=== PATIENT | male | born 1935 | race Caucasian/White ===

== ENCOUNTER 2018-05-18 19:05 | Inpatient (IN) ==
[2018-05-18 20:02] LABS: BILIRUBIN URINE NEGATIVE (NEGATIVE); BLOOD URINE 1+ (NEGATIVE); CLARITY CLEAR (CLEAR); COLOR YELLOW; KETONE URINE TRACE mg/dL (NEGATIVE); LEUKOCYTES URINE TRACE (NEGATIVE); NITRITE URINE NEGATIVE (NEGATIVE); PROTEIN URINE 1+(30 mg/dL) mg/dL (NEGATIVE); UROBILINOGEN URINE 4 mg/dL
[2018-05-18 20:03] LABS: URINE SOURCE CLEAN CATCH
[2018-05-18 20:05] LABS: URINE BACTERIA 2+ /HFP; URINE CAST NONE SEEN /LPF; URINE CRYSTAL NONE SEEN /HPF; URINE EPITHELIAL CELLS <10 /HPF (<10); URINE RBC <10 /HPF (<10); URINE WBC <10 /HPF (<10); URINE YEAST NONE SEEN /HPF
[2018-05-18 20:18] LABS: INFLUENZA A NEGATIVE (NEGATIVE); INFLUENZA B NEGATIVE (NEGATIVE)
[2018-05-18] MEDS ORDERED: NS 1,000 ML IV ONE (20:48)
[2018-05-18 21:23] LABS: BASO# 0.02 X1000 (0.0-0.2); BASO% 0.2 % (0.0-0.8); EOS% 0.8 % (0.0-10.0); HEMATOCRIT 40.7 % (42.0-52.0); HEMOGLOBIN 14.1 g/dL (14.0-18.0); IMM GRAN# 0.07 X1000 (0.0-0.04); IMM GRAN% 0.5 % (0.0-0.5); LYMPH# 1.18 X1000 (1.2-3.4); LYMPH% 9.1 % (20.5-51.1); MCHC 34.6 g/dL (33-37); MCV 98.1 FL (81-99); MONO% 10.8 % (1.7-9.3); MPV 10.8 FL (7.4-10.4); NEUT# 10.17 X1000 (1.4-6.5); NEUT% 78.6 % (42.2-75.2); PLT 229 X1000 (130-400); RBC 4.15 XMIL (4.7-6.1); WBC 12.94 X1000 (4.8-10.8)
[2018-05-18 21:48] LABS: ALBUMIN 3.6 g/dL (3.5-5.0); CALCIUM 8.6 mg/dL (8.8-10.2); CREATININE 1.2 mg/dL (0.7-1.2); POTASSIUM 3.8 mmol/L (3.5-5.1); TOTAL BILIRUBIN 1.1 mg/dL (0.20-1.00); TOTAL PROTEIN 6.6 g/dL (6.3-8.3)
--- NOTE | 2018-05-18 22:01 | Diag Imaging Result Doc PS360 ---
EXAM: CT HEAD/C-SPINE W/O CONTRAST 05/18/2018 HISTORY: MULTIPLE SYNCOPE TECHNIQUE: This exam was performed using automated exposure control, adjustment of mA or kV according to patient size, and/or use of iterative reconstruction technique. COMMENT: There is no evidence of mass effect, bleed, or abnormal extra-axial fluid collection. There are calcifications in the basal ganglia. There is opacification of the left maxillary sinus. This was not present at the time the previous study of 04/20/2017 however the appearance the brain has not changed significantly. There is also mucosal thickening in many of the ethmoid air cells. There is mucosal thickening in the right sphenoid sinus. Cervical spine: There is disc space narrowing and posterior osteophyte formation at C4-5, C5-C6, and C6-7. The facets appear to be well aligned. There is severe facet arthropathy present on the left at the C3-4 and to some extent at the C4-5 level. This was also present at the time the previous study of 04/20/2017. IMPRESSION: Sinusitis as described above. Otherwise no evidence of acute intracranial disease. Stable cervical spine. Electronically signed by Herbert Chirinos 05/18/2018 9:59 PM
--- NOTE | 2018-05-18 22:10 | Diag Imaging Result Doc PS360 ---
EXAM: CHEST-2 VIEWS 05/18/2018 HISTORY: WHEEZING ON EXAM TECHNIQUE: PA and lateral chest COMMENT: There is ill-defined opacity in the right base partially silhouetting the diaphragm. This is worse than on the previous study of 10/08/2017. There is COPD. IMPRESSION: COPD with right lower lobe pneumonia. Electronically signed by Herbert Chirinos 05/18/2018 10:08 PM
[2018-05-18 22:18] LABS: INFLUENZA A NEGATIVE (NEGATIVE); INFLUENZA B NEGATIVE (NEGATIVE)
[2018-05-18] MEDS ORDERED: NORCO-5 PO PRN (23:13)
[2018-05-18] MEDS ORDERED: TYLENOL PO PRN (23:19)
[2018-05-18] MEDS ORDERED: ZOFRAN IV PRN (23:19)
[2018-05-19] MEDS: NS 1,000 ML IV SCH ×3 (00:06→17:48)
[2018-05-19] MEDS: LEVAQUIN 750 MG/D5W 750 MG/150 ML IVPB IV SCH ×2 (00:06→22:40)
--- NOTE | 2018-05-19 04:20 | PROVIDER DOCUMENTATION ---
This chart was entered by Camila Leonard Scribe, acting as scribe for Clarice Ibanez MD. HPI-General Adult - General Chief Complaint: General Adult Stated Complaint: FLU SX Time Seen by Provider: 05/18/18 20:29 Source: patient Allergies/Adverse Reactions: Patient Allergies Allergy/AdvReac Type Severity Reaction Status Date / Time No Known Allergies Allergy Verified 05/18/18 20:01 Home Medications: Home Medication List Medication Instructions Recorded Confirmed Last Taken Type Aspirin 81 mg PO DAILY 10/04/15 05/18/18 05/17/18 22:00 History Clopidogrel Bisulfate [Plavix] 75 mg PO DAILY 10/04/15 05/18/18 05/17/18 22:00 History Hydrocodone/APAP 5 mg/325 mg 1 ea PO TID PRN #20 tab 10/15/17 05/18/18 05/17/18 22:00 Rx [[place]-5] Atorvastatin Calcium 20 mg PO HS 05/18/18 05/18/18 05/17/18 22:00 History - History of Present Illness -Gen Adult Nature of Presenting Problems: Pt is 83/m presenting to ED w/ c/o bodyaches, fever, sts that he passed out 3 times yesterday and had fallen off the toilet and at the table. Location of Pain/Injury: reports: generalized Pain Radiation: reports: no radiation Quality of Pain: reports: none Severity: reports: moderate Onset/Duration: reports: 4 days ago Timing: reports: still present Context/Activities at Onset: reports: none Modifying Factors: improves with: nothing Review of Systems - Adult - REVIEW OF SYSTEMS - ADULT Constitutional: reports: see HPI Eyes: reports: no symptoms reported Ears, Nose, Mouth & Throat: reports: no symptoms reported Cardiovascular: reports: no symptoms reported Respiratory: reports: cough Gastrointestinal: reports: see HPI Genitourinary: reports: no symptoms reported Integumentary: reports: no symptoms reported Neurological: reports: see HPI Allergic/Immunologic: reports: no symptoms reported Past History - Adult - PAST MEDICAL HISTORY-ADULT Review of Records: reports: Nursing Assessment Review, Medications Reviewed, Social history reviewed & non-contributory. Major Childhood Illnesses: reports: denies history Cardiovascular: reports: blood clots, PVD, other (bradycardia) Respiratory: reports: denies history Gastrointestinal: reports: GERD, ulcer Obstetrical/Gynecological: reports: denies history Genitourinary: reports: denies history Musculoskeletal: reports: arthritis Neurological: reports: CVA, other (brain bleed ) Endocrine/Immune: reports: denies history Other Conditions: reports: denies history - PRIOR SURGERIES/PROCEDURES Surgical/Procedure History: reports: hernia repair, orthopedic (extremity) (bilateral hand), other (stomach sx x6, facial sx, brain bleed 2011) - IMMUNIZATION STATUS Childhood Immunizations: See Nurse Assessment Flu Vaccine: See Nurse Assessment - FAMILY HISTORY Family History: reviewed, not pertinent Physical Exam-General - CONSTITUTIONAL General Appearance: alert, no apparent distress - EYES Eyes: PERRL/EOMI - HEAD, EARS, NOSE, MOUTH & THROAT HENMT: normocephalic/atraumatic, other (slightly dry mucous membrane) - NECK Neck: non-tender, full range of motion, supple - RESPIRATORY Respiratory: rhonchi (RL lung field), other (Good air entry B/L). negative: crackles - CARDIOVASCULAR Cardiovascular: regular rate, rhythm, no edema - GASTROINTESTINAL (ABDOMEN) Abdominal Exam: normal bowel sounds, non tender, soft - MUSCULOSKELETAL Back Exam: no CVA tenderness - NEUROLOGIC Neurologic: nanotechnician II-XII nml as tested, grossly normal, no motor/sensory deficits, negative romberg's sign - PSYCHIATRIC Psych/Mental Status: oriented x 3 Progress - PLAN OF CARE/RESULTS Progress/Plan/Lab Results: Vital Signs - 8 hr 05/18/18 19:34 Temperature 99 F Pulse Rate 67 Respiratory Rate 20 Blood Pressure 143/69 O2 Sat by Pulse Oximetry 93 L Laboratory Results - last 24 hr 05/18/18 05/18/18 19:44 19:54 Urine Source CLEAN CATCH Urine Color YELLOW Urine Clarity CLEAR Urine pH 5.0 Ur Specific [place] 1.020 Urine Protein 1+(30 mg/dL) A Urine Ketones TRACE Urine Blood 1+ A Urine Nitrite NEGATIVE Urine Bilirubin NEGATIVE Urine Urobilinogen 4 Urine Microscopic RBC <10 Urine WBC TRACE A Urine Microscopic WBC <10 Ur Epithelial Cells <10 Urine Crystals NONE SEEN Urine Bacteria 2+ Urine Casts NONE SEEN Urine Yeast NONE SEEN Urine Glucose TRACE(50 mg/dL) A Influenza A (Rapid) NEGATIVE Influenza B (Rapid) NEGATIVE Orders Category Date Time Status ED: Orthostatic Vital Signs (E DIRECTED Care 05/18/18 20:50 Active cxr [CHEST-2 VIEWS] [RAD] Stat Exams 05/18/18 20:49 Ordered CBC WITH ELECTRONIC DIFF [HEME] Stat Lab 05/18/18 20:50 Ordered CMP [COMPREHENSIVE METABOLIC PANEL] [CHEM] Stat Lab 05/18/18 20:50 Ordered Flu Swab [INFLUENZA SCREEN A/B] Stat Lab 05/18/18 21:06 Uncollected Flu [INFLUENZA SCREEN PL] Stat Lab 05/18/18 19:54 Completed TROPONIN T Stat Lab 05/18/18 20:[address] W/POSS RFLX CULT [URINALYSIS] Stat Lab 05/18/18 19:44 Completed URINE CULTURE [RM] Routine Lab 05/18/18 20:05 Ordered 0.9% Sodium Chloride Inj [Ns] 1,000 ml Med 05/18/18 20:48 Active IV 999 mls/hr EKG [EKG] Stat Ther 05/18/18 20:49 Ordered Result Diagrams: 05/18/18 21:08 05/18/18 21:08 - REASSESSMENT Reassessment #1 Status: unchanged (will admit to the hopital) - EKG 1 Time of EKG reading by physician:: 20:57 EKG Read and Signed by:: Clarice Ibanez EKG Interpretation (*Must complete 3 of following elements*): Abnormal (sinus rhythm with marked sinus arrhythmia with frequent premature ventricular complexes, nonspecific T wave abnormalities abormal ECG) Rate: 81 Rhythm: sinus [place]: normal QRS: normal - CONSULTS/PCP/HOSPITALIST Notification #1 *Consult/PCP/Hospitalist*: Dr. Carlos Barnes Time Discussed: 22:09 Consult Disposition: Admit (Hx , PE and patient care discussed. Accepted.) Departure - Departure Date of Disposition Decision: 05/18/18 Time of Disposition Decision: 22:08 DIAGNOSIS: PVCs (premature ventricular contractions) Syncope Qualifiers: Syncope type: unspecified Qualified Code(s): R55 - Syncope and collapse Pneumonia Qualifiers: Pneumonia type: due to unspecified organism Laterality: right Lung location: lower lobe of lung Qualified Code(s): J18.1 - Lobar pneumonia, unspecified organism Disposition: ADMITTED INPATIENT 09 Certified Medical Emergency: Emergent Condition: Stable - Critical Care Note This patient required my direct & personal management of CC.: No Attestation - Physician/ ALEXIS Attestation Patient care was provided by Advanced Practice Provider:: No The physician spent face to face time with patient:: Yes Advanced Practice Provider documentation review:: Supervising physician onsite and consulted in the evaluation and care of this patient. The physician did have a face to face encounter with the patient. This chart was documented by the indicated scribe, (Camila Leonard, Zo) and accurately reflects the services I performed and decisions made by me, Clarice Ibanez MD, as attested by the provider's signature.
[2018-05-19] MEDS: PROTONIX PO SCH (06:00)
[2018-05-19 06:12] LABS: BASO# 0.02 X1000 (0.0-0.2); BASO% 0.2 % (0.0-0.8); EOS# 0.13 X1000 (0.0-0.7); EOS% 1.2 % (0.0-10.0); HEMATOCRIT 38.1 % (42.0-52.0); IMM GRAN# 0.08 X1000 (0.0-0.04); IMM GRAN% 0.7 % (0.0-0.5); LYMPH# 1.25 X1000 (1.2-3.4); LYMPH% 11.7 % (20.5-51.1); MCH 33.3 PG (27-31); MCHC 34.1 g/dL (33-37); MCV 97.7 FL (81-99); MONO# 1.17 X1000 (0.11-0.59); MPV 10.6 FL (7.4-10.4); NEUT# 8.02 X1000 (1.4-6.5); NEUT% 75.2 % (42.2-75.2); PLT 220 X1000 (130-400); RDW 13.8 % (11.5-14.5); WBC 10.67 X1000 (4.8-10.8)
[2018-05-19 06:38] LABS: AGAP 12; ALBUMIN 2.9 g/dL (3.5-5.0); ALKALINE PHOSPHATASE 104 U/L (32-122); BUN 16 mg/dL (8-22); CALCIUM 7.9 mg/dL (8.8-10.2); CHLORIDE 102 mmol/L (98-107); COSMO 276; CREATININE 1.1 mg/dL (0.7-1.2); ESTIMATED GFR > 60; GLUCOSE 108 mg/dL (70-104); GOT 10 U/L (10-34); GPT 6 U/L (10-44); POTASSIUM 3.4 mmol/L (3.5-5.1); SODIUM 137 mmol/L (136-145); TCO2 24 mmol/L (25-35); TOTAL PROTEIN 5.9 g/dL (6.3-8.3)
--- NOTE | 2018-05-19 06:52 | EKG Report ---
Test Performed on : 05/18/2018 8:55:12 PM Test Reason : CP Blood Pressure : / mmHG Vent. Rate : 081 BPM Atrial Rate : 094 BPM P-R Int : 140 ms QRS Dur : 096 ms QT Int : 394 ms P-R-T Axes : 048 009 052 degrees QTc Int : 457 ms Sinus rhythm. with marked sinus arrhythmia. with frequent premature ventricular complexes. Nonspecific ST abnormality Abnormal ECG When compared with ECG of 09-OCT-2017 15:55, Sinus rhythm. has replaced Junctional rhythm. Vent. rate has increased BY 40 BPM Unconfirmed Result
[2018-05-19] MEDS: PLAVIX PO SCH (08:32)
[2018-05-19] MEDS: ASPIRIN PO SCH (08:32)
[2018-05-19] MEDS: DUONEB (A & A) INH SCH ×4 (11:20→22:50)
--- NOTE | 2018-05-19 12:08 | HISTORY AND PHYSICAL ---
PRIMARY CARE PHYSICIAN: Pascual Kurtz MD CHIEF COMPLAINT: Body aches, fever, chills, and had 3 syncopal episodes on . HISTORY OF PRESENTING ILLNESS: This is an 83-year-old male who presents to [facility] ER with complaints of a subjective fever, chills, and body aches. States that he passed out 3 separate times on . One time, he states he fell off the toilet. The second time, he fell forward out of a chair and the third time, he states he passed out and fell backwards out of the chair. His workup in the emergency room showed a white blood cell count of 12.94. His electrolytes were normal. TSH normal at 2.84. Urinalysis was negative except for 2+ bacteria. Influenza A and B were both negative. We did a chest x-ray that showed COPD with right lower lobe pneumonia. We did do a head and cervical spine CT that showed a sinusitis, but no other evidence of acute intracranial disease and a stable cervical spine. So, he was admitted for further evaluation and treatment. 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 PAST SURGICAL HISTORY: Bilateral hernia repair, bilateral hand trigger finger repair, six procedures done for his peptic ulcer disease, right facial reconstruction, right cataract surgery. FAMILY HISTORY: Reviewed and noncontributory. SOCIAL HISTORY: He currently lives with his . He was a former smoker but has quit for greater than 10 years. Denied any alcohol or illicit drug use. ALLERGIES: He has no known drug allergies. HOME MEDICATIONS: He takes aspirin 81 mg p.o. daily, atorvastatin 20 mg p.o. at bedtime, Plavix 75 mg p.o. daily and [place] 5 one p.o. t.i.d. p.r.n. pain. LABORATORY DATA: Showed a white blood cell count of 12.94, hemoglobin 14.1, hematocrit 40.7, platelets 229,000. Sodium 138, potassium 3.8, chloride 97, CO2 27, BUN of 17, creatinine 1.2 glucose 112. TSH of 284. Urinalysis was negative except for 2+ bacteria. Influenza A and B were both negative. Chest x-ray showed COPD with right lower lobe pneumonia. Head and cervical spine CT showed a sinusitis; otherwise no evidence of acute current intracranial disease, stable cervical spine. REVIEW OF SYSTEMS: He had a subjective fever, chills, body aches. Denied any chest pain, coughing or shortness of breath. He did pass out 3 times on . He denied any abdominal pain, constipation, diarrhea, burning or hurting with urination. PHYSICAL EXAMINATION: On arrival, he had a temperature of 99 degrees, a pulse of 67, respirations 20, blood pressure 143/69, saturating 93% on room air. GENERAL: This is an 83-year-old male who is lying in the bed and answers questions appropriately. HEENT: Normocephalic, atraumatic. Normal ENT inspection. Oropharynx and nares are clear. EYES: Pupils are equal, round, reactive to light and accommodation. Extraocular movements are intact. NECK: Normal inspection, normal range of motion. LUNGS: On arrival with some rhonchi in the right lower lung field. This morning, was a little decreased but equal lung expansion and chest wall movement noted. HEART: With regular rate and rhythm. No murmurs, rubs, or gallops. ABDOMEN: Soft, nontender, nondistended. Bowel sounds are present x4 quadrants. MUSCULOSKELETAL: He has 5/5 strength x4 extremities. NEUROLOGICAL: The cranial nerves 2-12 appear grossly intact. ASSESSMENT: 1. Right lower lobe pneumonia. 2. Syncope. 3. Chronic obstructive pulmonary disease (COPD), history of. 4. Gastroesophageal reflux disease (GERD), history of. PLAN: He was admitted to the medical unit, placed on healthy heart diet. We are going to check a carotid ultrasound and an echocardiogram just to make sure there is no abnormalities there but more than likely, he passed out from his pneumonia and overall not feeling well. We are going to check a urine culture. Blood cultures x2 are pending. He is on Levaquin 750 mg IV q. 24. We will do DuoNebs q.4 hours. We will continue his home medications as previously identified. He is on normal saline at 75 mL an hour and Protonix 40 mg p.o. daily and further orders after being seen by attending. We will recheck a CBC and BMP in the a.m. Dictated by LV Gayle for Carlos Barnes MD cc: MD Alma Camacho CRNP Adnan A. Seljuki, MD
--- NOTE | 2018-05-19 14:31 | ECHO REPORT ---
ORDER DATE: 05/19/2018 INDICATION FOR THE STUDY: Syncope. FINDINGS: 1. The right atrium appears normal in size. 2. Mild tricuspid regurgitation. RV systolic pressure of 37. 3. Normal RV size and systolic function. 4. Mild pulmonic insufficiency. 5. Mild left atrial enlargement with a volume index of 33. 6. No mitral valve prolapse. Mild mitral regurgitation. 7. Normal LV size, end-diastolic dimension of 5.6. Normal wall thicknesses with a posterior and interventricular septal thickness of 0.8, 0.9 cm respectively. Borderline normal to mildly reduced LV systolic function with an estimated EF in the 45 to 50 percent range. This is a somewhat difficult study with some foreshortened views. May consider an alternative modality such as MUGA. 8. Aortic valve opens well. It is trileaflet, mild insufficiency, no stenosis. 9. Aorta appears normal in visualized segments. 10. No pericardial effusion seen. cc: MD Carlos Zamudio MD
[2018-05-19] MEDS: LIPITOR PO SCH (20:31)
[2018-05-20] MEDS: DUONEB (A & A) INH SCH ×6 (03:26→23:08)
[2018-05-20] MEDS: NS 1,000 ML IV SCH ×2 (05:00→10:16)
[2018-05-20] MEDS: PROTONIX PO SCH (06:02)
[2018-05-20 06:45] LABS: BASO# 0.01 X1000 (0.0-0.2); BASO% 0.1 % (0.0-0.8); EOS# 0.17 X1000 (0.0-0.7); EOS% 2.4 % (0.0-10.0); HEMOGLOBIN 12.2 g/dL (14.0-18.0); IMM GRAN# 0.09 X1000 (0.0-0.04); IMM GRAN% 1.3 % (0.0-0.5); LYMPH# 0.97 X1000 (1.2-3.4); MCH 32.5 PG (27-31); MCV 98.7 FL (81-99); MONO# 0.88 X1000 (0.11-0.59); MONO% 12.7 % (1.7-9.3); MPV 10.1 FL (7.4-10.4); NEUT# 4.82 X1000 (1.4-6.5); NEUT% 69.5 % (42.2-75.2); PLT 229 X1000 (130-400); RBC 3.75 XMIL (4.7-6.1); WBC 6.94 X1000 (4.8-10.8)
[2018-05-20 07:14] LABS: AGAP 12; BUN 12 mg/dL (8-22); CALCIUM 7.9 mg/dL (8.8-10.2); CHLORIDE 105 mmol/L (98-107); COSMO 282; ESTIMATED GFR > 60; GLUCOSE 117 mg/dL (70-104); SODIUM 141 mmol/L (136-145); TCO2 24 mmol/L (25-35)
[2018-05-20] MEDS: PLAVIX PO SCH (10:15)
[2018-05-20] MEDS: ASPIRIN PO SCH (10:15)
--- NOTE | 2018-05-20 10:40 | PROGRESS NOTE ---
DATE: 05/20/2018 SUBJECTIVE: Patient denies having any acute complaints this morning. OBJECTIVE: Vital Signs: Temperature 97.5 degrees, pulse 58 per minute, respiratory rate 16 per minute, blood pressure 133/48, pulse oximetry 98% on room air. General: Patient is alert and oriented x3. He does not appear to be in any acute distress. Cardiovascular System: First and second heart sounds are audible without any murmurs or gallops. Respiratory System: Bilateral lung air entry is slightly decreased but there are no rales or rhonchi present on auscultation. Gastrointestinal: Abdomen is soft and nondistended. It is nontender on palpation and normal bowel sounds are present. DIAGNOSTIC DATA: CBC done this morning is nondiagnostic. Chemistry is also nondiagnostic. IMPRESSION: 1. Right lower lobe pneumonia with chronic obstructive pulmonary disease. 2. Syncope of unknown etiology. 3. History of cerebrovascular accident. 4. History of peripheral arterial disease. PLAN: 1. We are going to continue with levofloxacin intravenously along with IV fluids. 2. He will be continued on aspirin along with clopidogrel for his peripheral arterial disease and we have ordered a carotid Doppler study, results of which are pending at this time. He did have echocardiogram done showed a slightly reduced ejection fraction at 45% to 50%, but this was somewhat difficult study and therefore its accuracy was questionable. 3. Clinically he is doing better and will therefore continue with antibiotic therapy and he can probably be able to be discharged home in the next day or 2. His syncope and possibly abnormal echocardiogram can be followed up as outpatient. cc: Carlos Barnes MD
--- NOTE | 2018-05-20 13:56 | Extremity Venous Study ---
Carotid Ultrasound - 05/18/2018 INDICATION: Syncope TECHNIQUE: COMPARISON: None FINDINGS: The right carotid artery system is patent. On the left side, there is a focal shadowing plaque in the mid internal carotid artery. This indicates calcified plaque. On the right side there is no hemodynamically significant stenosis. Maximum velocity is 98 cm/s in the distal internal carotid artery. On the left side, there is mild stenosis in the mid internal carotid artery. Maximum velocity is 123 cm/s. This indicates 40-59% stenosis. The vertebral arteries are patent with forward flow. IMPRESSION: 1. Moderate stenosis of the mid left internal carotid artery, 40-59%. 2. No significant stenosis in the right side. Electronically signed by Gal Bowling 05/20/2018 1:54 PM
[2018-05-20] MEDS: LIPITOR PO SCH (21:42)
[2018-05-20] MEDS: LEVAQUIN 750 MG/D5W 750 MG/150 ML IVPB IV SCH (23:12)
[2018-05-21] MEDS: DUONEB (A & A) INH SCH ×6 (03:19→22:49)
--- NOTE | 2018-05-21 04:07 | HISTORY AND PHYSICAL ---
ADDENDUM: I saw the patient [id number] and fully agree with the assessment plan of nurse practitioner Alma Álvarez. This is an 83-year-old gentleman who was admitted through the emergency department with syncopal episodes. He appears to have chronic obstructive pulmonary disease and also has right lower lobe pneumonia. We are going to admit him, therefore, on IV antibiotics and give him IV fluids. We will also obtain syncope workup including carotid Doppler and echocardiogram. His CT brain has been negative for any acute abnormality. Further recommendations will be given as per hospital course. cc: Carlos Barnes MD
[2018-05-21] MEDS: PROTONIX PO SCH (06:30)
[2018-05-21] MEDS: NS 1,000 ML IV SCH (06:30)
[2018-05-21 06:43] LABS: BASO# 0.02 X1000 (0.0-0.2); BASO% 0.3 % (0.0-0.8); EOS# 0.18 X1000 (0.0-0.7); EOS% 2.4 % (0.0-10.0); HEMATOCRIT 36.6 % (42.0-52.0); HEMOGLOBIN 12.3 g/dL (14.0-18.0); IMM GRAN% 1.3 % (0.0-0.5); LYMPH# 1.03 X1000 (1.2-3.4); LYMPH% 13.6 % (20.5-51.1); MCH 33.1 PG (27-31); MCHC 33.6 g/dL (33-37); MCV 98.4 FL (81-99); MONO# 0.87 X1000 (0.11-0.59); MONO% 11.5 % (1.7-9.3); MPV 10.1 FL (7.4-10.4); NEUT# 5.38 X1000 (1.4-6.5); NEUT% 70.9 % (42.2-75.2); PLT 254 X1000 (130-400); RBC 3.72 XMIL (4.7-6.1); WBC 7.58 X1000 (4.8-10.8)
[2018-05-21 06:53] LABS: AGAP 11; BUN 8 mg/dL (8-22); CALCIUM 7.8 mg/dL (8.8-10.2); CHLORIDE 105 mmol/L (98-107); COSMO 281; CREATININE 0.9 mg/dL (0.7-1.2); ESTIMATED GFR > 60; GLUCOSE 116 mg/dL (70-104); POTASSIUM 3.2 mmol/L (3.5-5.1); SODIUM 141 mmol/L (136-145); TCO2 25 mmol/L (25-35)
[2018-05-21] MEDS ORDERED: KLOR-CON PO ONE (07:05)
--- NOTE | 2018-05-21 07:44 | Diag Imaging Result Doc PS360 ---
EXAM: CHEST-PORTABLE HISTORY: Pneumonia TECHNIQUE: Portable chest single view COMPARISON: 05/18/2018 FINDINGS: There are dense infiltrates in the right lung base. These are more pronounced than on the prior study. The heart is not enlarged. The pulmonary vessels are small. No pleural effusions identified. IMPRESSION: Worsening right lower lobe pneumonia. Electronically signed by James Arzola 05/21/2018 7:42 AM
--- NOTE | 2018-05-21 09:01 | Diag Imaging Result Doc PS360 ---
EXAM: KUB ABDOMEN HISTORY: n/v TECHNIQUE: Abdomen two views COMPARISON: 10/08/2017 FINDINGS: There are surgical clips and sutures in the mid abdomen. The bowel loops are not dilated. No organomegaly. No free air beneath the diaphragm. Mid right abdominal calcification is unchanged. IMPRESSION: Stable right renal stone. No bowel obstruction. Electronically signed by James Arzola 05/21/2018 8:58 AM
[2018-05-21] MEDS: PLAVIX PO SCH (09:34)
[2018-05-21] MEDS: ASPIRIN PO SCH (09:34)
[2018-05-21] MEDS: CARAFATE LIQUID PO SCH ×3 (12:53→20:25)
--- NOTE | 2018-05-21 15:28 | PROGRESS NOTE ---
DATE: 05/21/2018 SUBJECTIVE: Patient overall notes that he is doing a lot better. He is having no shortness of breath. Denies any coughing. Denies any issues breathing. States he is having some nausea and that is ultimately the reason he came to the hospital. PHYSICAL EXAMINATION: Vital Signs: Temperature 98.4 degrees, pulse 45, respiratory 20, blood pressure 126/45. General: Patient is awake, alert. He is in no current distress. HEENT: Normocephalic. Neck: Supple. Cardiovascular: Regular rate. Chest: Clear. Abdomen: Soft. Extremities: Moves all extremities. ASSESSMENT: 1. Right lower lobe pneumonia continues to be problematic. 2. Syncope resolved. 3. History of cerebrovascular accident. 4. Peripheral artery disease. 5. Nausea and vomiting. 6. Hypokalemia. PLAN: We will recheck a KUB. We will continue antibiotics and will follow. cc: Tomy Buckner MD
[2018-05-21] MEDS: LIPITOR PO SCH (20:25)
[2018-05-21] MEDS ORDERED: LEVAQUIN PO SCH (21:00)
[2018-05-22] MEDS: CARAFATE LIQUID PO SCH ×2 (02:10→08:30)
[2018-05-22] MEDS: DUONEB (A & A) INH SCH ×2 (03:16→07:13)
[2018-05-22] MEDS: PROTONIX PO SCH (06:02)
[2018-05-22 06:36] LABS: BASO# 0.02 X1000 (0.0-0.2); BASO% 0.3 % (0.0-0.8); EOS# 0.25 X1000 (0.0-0.7); EOS% 3.2 % (0.0-10.0); HEMOGLOBIN 12.9 g/dL (14.0-18.0); IMM GRAN# 0.11 X1000 (0.0-0.04); IMM GRAN% 1.4 % (0.0-0.5); LYMPH# 1.21 X1000 (1.2-3.4); LYMPH% 15.3 % (20.5-51.1); MCH 32.6 PG (27-31); MCHC 33.1 g/dL (33-37); MCV 98.5 FL (81-99); MONO# 0.82 X1000 (0.11-0.59); MONO% 10.4 % (1.7-9.3); MPV 10.2 FL (7.4-10.4); NEUT# 5.48 X1000 (1.4-6.5); NEUT% 69.4 % (42.2-75.2); PLT 308 X1000 (130-400); RBC 3.96 XMIL (4.7-6.1); RDW 14.1 % (11.5-14.5); WBC 7.89 X1000 (4.8-10.8)
[2018-05-22 07:18] LABS: AGAP 12; BUN 8 mg/dL (8-22); CALCIUM 8.4 mg/dL (8.8-10.2); CHLORIDE 103 mmol/L (98-107); COSMO 282; ESTIMATED GFR > 60; GLUCOSE 104 mg/dL (70-104); POTASSIUM 3.9 mmol/L (3.5-5.1); SODIUM 142 mmol/L (136-145); TCO2 27 mmol/L (25-35)
[2018-05-22 08:07] VITALS: BP 127/56
[2018-05-22] MEDS: PLAVIX PO SCH (08:30)
[2018-05-22] MEDS: ASPIRIN PO SCH (08:30)
[2018-05-22] MEDS ORDERED: DOXYCYCLINE PO SCH (09:00)
--- NOTE | 2018-05-22 13:12 | DISCHARGE SUMMARY ---
ADMISSION DATE: 05/18/2018 DISCHARGE DATE: 05/22/2018 PRIMARY CARE PHYSICIAN: Dr. Pascual Kurtz. DIAGNOSES: 1. Right lower lobe pneumonia. 2. Syncope. 3. Chronic obstructive pulmonary disease. 4. Gastroesophageal reflux disease. 5. Nausea and vomiting. 6. Hypokalemia. DIAGNOSTICS: 1. 05/18/2018 chest x-ray revealed COPD with right lower lobe pneumonia. 2. CT of the head revealed sinusitis. Otherwise, no evidence of acute intracranial disease. Stable cervical spine. 3. Carotid Doppler revealed moderate stenosis of the mid left internal carotid artery 40 to 59 percent with no significant stenosis on the right. 4. Echocardiogram revealed ejection fraction of 45 to 50 percent. 5. Repeat chest x-ray 05/21/2018 revealed worsening right lower lobe pneumonia. 6. Abdominal x-ray revealed stable right renal stone with no bowel obstruction. 7. Microbiology blood culture revealed no growth after 48 hours x2 cultures. 8. Urine culture revealed no pathogenic growth. HOSPITAL COURSE: Mr. Og presented to the emergency room complaining of 3 days of body aches, fevers and chills, and he did have 3 syncopal episodes on prior to admission. He was found to have right lower lobe pneumonia and sinusitis for which he was initially treated with Levaquin IV, and has being transitioned over to Levaquin and doxycycline on discharge. With IV hydration and DuoNeb's. Thankfully, he has progressed. He had no further syncopal episodes and is ready for discharge. DISCHARGE VITAL SIGNS: Blood pressure 127/56 with a heart rate of 72, respirations 20, temperature 97.7 degrees with room air sats 97 to 98%. DISCHARGE PHYSICAL EXAMINATION: Cardiovascular regular rate and rhythm. S1 and S2 appreciated. He has no lower extremity edema. Calves are nontender to palpation with peripheral pulses palpable x4 extremities. Pulmonary: Breath sounds are diminished. Chest rises and falls symmetrically with respiration. Chest wall is nontender to palpation. He has no increased work of breathing. Gastrointestinal shows abdomen is soft, nontender, and nondistended with bowel sounds in all 4 quadrants. Neurologic: He is alert oriented x3. DISCHARGE MEDICATIONS: 1. Aspirin 81 mg p.o. daily. 2. Atorvastatin 20 mg p.o. at bedtime. 3. Plavix 75 mg p.o. daily. 4. [place] 5 as directed. 5. Doxycycline 100 mg p.o. b.i.d. for 7 days. 6. Levaquin 500 mg p.o. for 7 days. FOLLOW-UP: 1. He needs to follow up with his primary care physician, Dr. Pascual Kurtz. Appointment has been scheduled for 05/31/2018 at 3:10 in the afternoon. 2. He has been instructed to call to be seen sooner or return to the ER for any chest pain, palpitations, dizziness, syncope, temperature greater than 101, any shortness of breath, PND, orthopnea, any nausea, vomiting, diarrhea, constipation, or for any questions or concerns that he may have. DISPOSITION: He is being discharged home in stable condition with family members. TIME SPENT: This is a greater than 30 minute discharge. Dictated by LV Hart for Tomy Buckner MD This chart was documented by, LV Hart and accurately reflects the services performed, treatment plan and medical decisions as attested by the providers signature Tomy Buckner MD. cc: LV Hart MD
--- NOTE | 2018-05-22 23:17 | DISCHARGE SUMMARY ---
ADMISSION DATE: 05/18/2018 DISCHARGE DATE: 05/22/2018 DISCHARGE DIAGNOSES: 1. Right lower lobe pneumonia, improved. 2. Nausea, vomiting, improved. 3. Chronic obstructive pulmonary disease, stable. 4. Syncope. 5. Cerebrovascular accident. 6. Peripheral vascular disease. CONSULTATIONS: None. PROCEDURES: None. BRIEF HOSPITAL COURSE: The patient is an 83-year-old male who presented to the hospital, subsequently placed on Carafate and antibiotics. Thankfully, he had an uneventful hospital course, he continued to improve. DISCHARGE DISPOSITION: Discussed with patient that I would prefer him to stay in the hospital longer. However, he states that his needs constant care and his children have to leave town due to a family . Therefore, we will discharge him home on antibiotics. He is to follow up with his primary care, Dr. Kurtz, in 1 week, sooner if symptoms worsen or return. Will continue Carafate for his stomach and will follow. cc: Tomy Buckner MD
== END 2018-05-22 10:37 | disposition home or self-care (01) | DRG 194 ==
LOC: P.ED 19:05 → SUATTDRO 22:48 → P.MEDSURG 22:48
PROVIDERS: ATTEND Family Medicine
CPT/HCPCS: 36415; 70450; 71010; 71020; 71045; 71046; 72125; 74000; 74018; 80048; 80053; 81001; 84443; 84484; 85025; 87040; 87088; 87275; 87276; 87804; 93005; 93306; 93880; 94640; 94761; 96360; 96361; 99285; A9270; J1956; J2405; J7030